=== PATIENT | male | born 1995 | race Caucasian/White ===

== ENCOUNTER 2016-09-15 12:58 | Emergency (ER) | payer OTHER ==
[2016-09-15 13:37] VITALS: BP 138/77
--- NOTE | 2016-09-15 16:25 | RAD ---
Indication: Left hand pain. 3 views of left hand demonstrates no fracture. No other bone or joint abnormality is identified. IMPRESSION: No fracture of left hand is noted.
--- NOTE | 2016-10-16 15:49 | ED ---
Upper Extremity Pain - HPI Summary HPI Summary: Pt here w Lt hand pain after blunt trauma yesterday. Was fishing and got his line stuck in a tree. He pulled on the line to recover lure, etc and the lure came back at a high speed and struck him in the left hand. He has bruising and swelling here as well as soreness. Has not tried ice, ibuprofen nor does he want any today - just here to get checked for fracture. Denies numbness, tingling, weakness - moving hand and fingers well but is painful to do so. No skin break down. No other injuries to report. - History of Current Complaint Chief Complaint: EDExtremityUpper Stated Complaint: LT HAND INJURY Time Seen by Provider: 09/15/16 15:44 Hx Obtained From: Patient PMH/Surg Hx/FS Hx/Imm Hx Previously Healthy: Yes Endocrine/Hematology History: Denies: Hx Anticoagulant Therapy, Hx Blood Disorders - Immunization History Date of Tetanus Vaccine: 2013 Date of Influenza Vaccine: unknown Infectious Disease History: No Infectious Disease History: Denies: Traveled Outside the [place] in Last 30 Days - Social History Occupation: Student Lives: With Family - roommates Alcohol Use: Weekly Hx Substance Use: No Substance Use Type: Reports: None Hx Tobacco Use: No Smoking Status (MU): Never Smoked Tobacco Review of Systems Musculoskeletal: Other - see HPI Skin: Other - see HPI Neurological: Negative Psychological: Normal All Other Systems Reviewed And Are Negative: Yes Physical Exam Triage Information Reviewed: Yes Vital Signs On Initial Exam: Initial Vitals Temp Pulse Resp BP Pulse Ox 97.6 F 52 17 138/77 100 09/15/16 13:33 09/15/16 13:33 09/15/16 13:33 09/15/16 13:33 09/15/16 13:33 Vital Signs Reviewed: Yes Appearance: Positive: Well-Appearing, No Pain Distress, Well-Nourished Skin: Positive: Warm, Dry - mild echymosis w/ edema about Lt hand; no skin breakdown Head/Face: Positive: Normal Head/Face Inspection Eyes: Positive: EOMI ENT: Positive: Hearing grossly normal Respiratory/Lung Sounds: Positive: Breath Sounds Present Cardiovascular: Positive: Pulses are Symmetrical in both Upper and Lower Extremities Musculoskeletal: Positive: Strength/ROM Intact, Pain @ - affectd area on Lt hand w/ TTP and sore to make a fist - otherwise, moving well, no deformity Neurological: Positive: Normal, Sensory/Motor Intact, Alert, Oriented to Person Place, Time, CN Intact II-III Psychiatric: Positive: Normal Diagnostics - Vital Signs Vital Signs Temp Pulse Resp BP Pulse Ox 09/15/16 15:27 98.6 F 52 16 138/77 100 09/15/16 13:33 97.6 F 52 17 138/77 100 - Laboratory Lab Statement: Any lab studies that have been ordered have been reviewed, and results considered in the medical decision making process. Course/Dx - Diagnoses Provider Diagnoses: Contusion of left hand Discharge - Discharge Plan Condition: Stable Disposition: HOME Patient Education Materials: Contusion in Adults (ED) Referrals: Count Includes [facility] [Primary Care Provider] - Additional Instructions: Rest, ice, elevate You may take ibuprofen with food for pain and swelling Follow-up with [facility] if symptoms persist or worsen as you may benefit from referral to hand specialist.
== END 2016-09-15 16:37 | disposition home or self-care (01) ==
LOC: ED 12:58
DX: S60.222A Contusion of left hand, initial encounter (principal); W22.8XXA Striking against or struck by other objects, initial encounter; Y93.89 Activity, other specified; Y92.89 Other specified places as the place of occurrence of the external cause
CPT/HCPCS: 99281

== ENCOUNTER 2016-10-23 12:43 | Emergency (ER) | payer OTHER ==
[2016-10-23] MEDS ORDERED: Rabies Immune Globulin 10 ML* 150 UNIT/ML VIAL IM ONE (14:36)
[2016-10-23] MEDS ORDERED: Rabies VIRUS VACCINE, HDCV* 2.5 UNIT/ML 1 ML IM ONE (14:36)
[2016-10-23] MEDS ORDERED: Rabies Immune Globulin 2 ML* 150 UNITS/ML VIAL ONE (15:47)
[2016-10-23 16:36] VITALS: BP 133/87
--- NOTE | 2016-10-23 18:46 | ED ---
Dru Rojas Angela, scribed for Urban Heaton MD on 10/23/16 at 1433 . Bite Injury/Animal - HPI Summary HPI Summary: Pt is a 21 y/o male presenting to [facility] c/o a bat bite on his left hand last night. Pt reports he was trying to save it and it bit him. He let the bat free and can't be monitored. Pt denies any fever, chills, pain, SOB or other complaints from bite. He denies any PMHx. - History of Current Complaint Chief Complaint: EDAnimalBite Stated Complaint: BAT BITE Time Seen by Provider: 10/23/16 14:25 Hx Obtained From: Patient Onset of Injury: Happened days ago - yesterday Type of Bite: Animal - bat Pain Intensity: 0 Pain Scale Used: 0-10 Numeric Animal Available for Observation: No - Allergies/Home Medications Allergies/Adverse Reactions: Allergies Allergy/AdvReac Type Severity Reaction Status Date / Time No Known Allergies Allergy Verified 10/23/16 13:00 PMH/Surg Hx/FS Hx/Imm Hx Endocrine/Hematology History: Denies: Hx Anticoagulant Therapy, Hx Blood Disorders, Hx Diabetes Cardiovascular History: Denies: Hx Hypertension - Immunization History Date of Tetanus Vaccine: 2013 Date of Influenza Vaccine: unknown Infectious Disease History: Denies: Traveled Outside the [place] in Last 30 Days - Social History Alcohol Use: Weekly Hx Substance Use: No Substance Use Type: Reports: None Hx Tobacco Use: No Smoking Status (MU): Never Smoked Tobacco Review of Systems Negative: Fever, Chills Negative: Shortness Of Breath Negative: Vomiting, Nausea Positive: Other - Bat bite on his left hand All Other Systems Reviewed And Are Negative: Yes Physical Exam - Summary Physical Exam Summary: VITAL SIGNS: Reviewed. GENERAL: ~Patient is a well-developed and nourished male. Patient is not in any acute respiratory distress. HEAD AND FACE: No signs of trauma. No ecchymosis, hematomas or skull depressions. No sinus tenderness. EYES: PERRLA, EOMI x 2, No injected conjunctiva, no nystagmus. EARS: Hearing grossly intact. MOUTH: Oropharynx within normal limits. NECK: Supple, neck with full ROM. CHEST: Symmetric, no tenderness at palpation LUNGS: Clear to auscultation bilaterally. No wheezing or crackles. CVS: Regular rate and rhythm, S1 and S2 present, no murmurs or gallops appreciated. EXTREMITIES: FROM in all major joints, no edema, no cyanosis or clubbing. There is a wound that is consistent with a bite on his left hand. NEURO: Alert and oriented x 3. No acute neurological deficits. Speech is normal and follows commands. SKIN: Dry and warm Triage Information Reviewed: Yes Vital Signs On Initial Exam: Initial Vitals Temp Pulse Resp BP Pulse Ox 98.3 F 86 16 149/66 99 10/23/16 13:00 10/23/16 13:00 10/23/16 13:00 10/23/16 13:00 10/23/16 13:00 Vital Signs Reviewed: Yes Diagnostics - Vital Signs Vital Signs Temp Pulse Resp BP Pulse Ox 10/23/16 13:00 98.3 F 86 16 149/66 99 - Laboratory Lab Statement: Any lab studies that have been ordered have been reviewed, and results considered in the medical decision making process. Bite Injury Course/Dx - Course Course Of Treatment: Pt is a 21 y/o male presenting to [facility] c/o a bat bite on his left hand last night. Pt reports he was trying to save it and it bit him. He let the bat free and can't be monitored. Pt denies any fever, chills, pain, SOB or other complaints from bite. He denies any PMHx. The pt presents with a bat bite on his left hand. Pt was given rabies immune globulin as well as the vaccine. The pt will follow up with [facility]. The pt understands and agrees with this plan. He is hemodynamically stable, and alert and oriented x3. - Diagnoses Provider Diagnosis: Rabies exposure, Animal bite Discharge - Discharge Plan Condition: Stable Disposition: HOME Patient Education Materials: Rabies (ED), Animal Bite (ED) Referrals: [facility] [Primary Care Provider] - Additional Instructions: Your blood pressure was elevated during today's visit. Please follow up with your primary care provider for a blood pressure reading. Also, please follow up with the Health Department regarding your rabies exposure as directed. The documentation as recorded by the Dru whitmore Angela accurately reflects the service I personally performed and the decisions made by , Urban Heaton MD.
== END 2016-10-23 16:37 | disposition home or self-care (01) ==
LOC: ED 12:43
DX: Z20.3 Contact with and (suspected) exposure to rabies (principal); S61.452A Open bite of left hand, initial encounter; W64.XXXA Exposure to other animate mechanical forces, initial encounter; Y93.89 Activity, other specified; Y92.89 Other specified places as the place of occurrence of the external cause
CPT/HCPCS: 90375; 99282

== ENCOUNTER 2016-10-26 21:22 | Emergency (ER) | payer OTHER ==
[2016-10-26] MEDS ORDERED: Rabies VIRUS VACCINE, HDCV* 2.5 UNIT/ML 1 ML IM ONE (21:55)
--- NOTE | 2016-10-26 22:00 | ED ---
Bite Injury/Animal - HPI Summary HPI Summary: 21M presents for rabies vaccine. vaccine was given in same arm as immunoglobulin so makes vaccine ineffective so health department wants him to have it given. no reaction to previous vaccine. was bit by bat. - History of Current Complaint Chief Complaint: EDGeneral Stated Complaint: RABIES SHOT Time Seen by Provider: 10/26/16 21:47 Pain Intensity: 0 - Allergies/Home Medications Allergies/Adverse Reactions: Allergies Allergy/AdvReac Type Severity Reaction Status Date / Time No Known Allergies Allergy Verified 10/26/16 21:32 PMH/Surg Hx/FS Hx/Imm Hx Endocrine/Hematology History: Denies: Hx Anticoagulant Therapy, Hx Blood Disorders, Hx Diabetes Cardiovascular History: Denies: Hx Hypertension - Immunization History Date of Tetanus Vaccine: 2013 Date of Influenza Vaccine: unknown Infectious Disease History: No Infectious Disease History: Denies: Traveled Outside the [place] in Last 30 Days - Family History Known Family History: Negative: Cardiac Disease - Social History Alcohol Use: Weekly Hx Substance Use: No Substance Use Type: Reports: None Hx Tobacco Use: No Smoking Status (MU): Never Smoked Tobacco Review of Systems Negative: Fever Negative: Chest Pain Negative: Shortness Of Breath Positive: Other - need rabies vaccine All Other Systems Reviewed And Are Negative: Yes Physical Exam Triage Information Reviewed: Yes Vital Signs On Initial Exam: Initial Vitals Temp Pulse Resp BP Pulse Ox 98 F 61 16 171/76 100 10/26/16 21:33 10/26/16 21:33 10/26/16 21:33 10/26/16 21:33 10/26/16 21:33 Vital Signs Reviewed: Yes Appearance: Positive: Well-Appearing Skin: Positive: Warm, Dry Head/Face: Positive: Normal Head/Face Inspection Eyes: Positive: Normal, Conjunctiva Clear Respiratory/Lung Sounds: Positive: Clear to Auscultation, Breath Sounds Present Cardiovascular: Positive: Normal, RRR Diagnostics - Vital Signs Vital Signs Temp Pulse Resp BP Pulse Ox 10/26/16 21:33 98 F 61 16 171/76 100 - Laboratory Lab Statement: Any lab studies that have been ordered have been reviewed, and results considered in the medical decision making process. Bite Injury Course/Dx - Course Course Of Treatment: 21M presents for rabies vaccine. vaccine was given in same arm as immunoglobulin so makes vaccine ineffective so health department wants him to have it given. no reaction to previous vaccine. rabies vaccine given. patient understands and agrees with plan. - Diagnoses Differential Diagnosis/HQI/PQRI: Positive: Rabies Exposure Provider Diagnosis: Need for rabies vaccination Discharge - Discharge Plan Condition: Good Disposition: HOME Patient Education Materials: Rabies Vaccine (By injection) Referrals: [facility] [Primary Care Provider] - Additional Instructions: Return to ED if develop any new or worsening symptoms
[2016-10-26 22:47] VITALS: BP 125/76
== END 2016-10-26 22:45 | disposition home or self-care (01) ==
LOC: ED 21:22
DX: Z20.3 Contact with and (suspected) exposure to rabies (principal)
CPT/HCPCS: 96372; 99281

== ENCOUNTER 2017-03-27 13:44 | Emergency (ER) | payer OTHER ==
[2017-03-27] MEDS ORDERED: Morphine INJ* 4 MG/ML 1 ML CARPUJECT IV ONE (14:21)
[2017-03-27] MEDS ORDERED: Ondansetron INJ* 2 MG/ML VIAL IV ONE (14:21)
--- NOTE | 2017-03-27 14:55 | RAD ---
HISTORY: Left shoulder pain and swelling COMPARISONS: None VIEWS: 6, Frontal internal rotation, external rotation, outlet, and axillary views of the left shoulder with frontal and frontal oblique views of the left clavicle FINDINGS: BONE DENSITY: Normal. BONES: There is no displaced fracture. JOINTS: There is no arthropathy. There is widening of the acromioclavicular and coracoclavicular intervals which measure 1.6 and 2.5 cm respectively. There is superior displacement of the clavicle with respect to the acromion. ALIGNMENT: There is no dislocation. SOFT TISSUES: Unremarkable. OTHER FINDINGS: None. IMPRESSION: WIDENING OF THE ACROMIOCLAVICULAR AND CORACOCLAVICULAR INTERVALS CONSISTENT WITH LIGAMENTOUS INJURY. NO ACUTE OSSEOUS INJURY. IF SYMPTOMS PERSIST, RECOMMEND REPEAT IMAGING
--- NOTE | 2017-03-27 15:03 | RAD ---
HISTORY: Trauma, nausea, fatigue COMPARISONS: None TECHNIQUE: Multiple contiguous axial CT scans were obtained of the head without intravenous contrast. FINDINGS: HEMORRHAGE/INFARCT: There is no hemorrhage or acute infarct. MASSES/SHIFT: There is no mass or shift. EXTRA-AXIAL SPACES: There are no extra-axial fluid collections. SULCI AND VENTRICLES: The sulci and ventricles are normal in size and position for the patient's stated age. CEREBRUM: There are no focal parenchymal abnormalities. 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 CEREBELLUM: There are no focal parenchymal abnormalities. VESSELS: The vessels are grossly normal. PARANASAL SINUSES: The paranasal sinuses are clear. ORBITS: The orbits are unremarkable. BONES AND SOFT TISSUE: No bone or soft tissue abnormalities are noted. OTHER: None IMPRESSION: NO ACUTE INTRACRANIAL PATHOLOGY.
[2017-03-27 15:09] VITALS: BP 127/81
[2017-03-27] MEDS ORDERED: Ketorolac INJ* 30 MG/ML 1 ML VIAL IV PUSH ONE (15:16)
--- NOTE | 2017-03-27 15:21 | ED ---
Upper Extremity Pain - HPI Summary HPI Summary: Rt hand dominant pt here w/ Lt shoulder pain and deformity since getting tackled while playing football earlier today.This was recreational football - was not wearing a helmet. Friend who brought him reports he didn't look so hot after the hit and pt immediately requested to be brought here - states "I think I broke my clavicle". Denies numbness, tingling, weakness but can move fingers, wrist - pain in shoulder with moving elbow so refrains - no pain in elbow. Has not taken anything for pain prior to arrival however admits he had "a couple of beers" earlier today. Does not believe he hit his head but not sure about the details. Denies LOC, MORALES but reports he feels nauseous and fatigued - wants to go to sleep. No neck pain. - History of Current Complaint Chief Complaint: CABRERAhouorlandoerCArianna Stated Complaint: LEFT COLLAR BONE PAIN Time Seen by Provider: 03/27/17 14:12 Hx Obtained From: Patient, Family/Fire Control Technician - friend - Allergies/Home Medications Allergies/Adverse Reactions: Allergies Allergy/AdvReac Type Severity Reaction Status Date / Time No Known Allergies Allergy Verified 10/26/16 21:32 PMH/Surg Hx/FS Hx/Imm Hx Previously Healthy: Yes Endocrine/Hematology History: Denies: Hx Anticoagulant Therapy, Hx Blood Disorders, Hx Diabetes Cardiovascular History: Denies: Hx Hypertension - Immunization History Date of Tetanus Vaccine: 2013 Date of Influenza Vaccine: unknown Immunizations Up to Date: Yes Infectious Disease History: No Infectious Disease History: Denies: Traveled Outside the [place] in Last 30 Days - Family History Known Family History: Negative: Cardiac Disease - Social History Occupation: Student Lives: Dormitory/Roommates Alcohol Use: Weekly Alcohol Amount: last etoh today @ 1200-2 shots peach schnapps Hx Substance Use: No Substance Use Type: Reports: None Hx Tobacco Use: No Smoking Status (MU): Never Smoked Tobacco Review of Systems Positive: Fatigue Negative: Photophobia, Blurred Vision, Diplopia Negative: Epistaxis, Dental Pain Negative: Chest Pain - no pain w/ deep breath, no rib pain Negative: Shortness Of Breath, Cough Positive: Nausea. Negative: Abdominal Pain, Vomiting, Diarrhea Positive: no symptoms reported Positive: Arthralgia, Myalgia, Decreased ROM Skin: Negative Neurological: Negative Positive: Anxious - concerned but appears fatigued All Other Systems Reviewed And Are Negative: Yes Physical Exam Triage Information Reviewed: Yes Vital Signs On Initial Exam: Initial Vitals Temp Pulse Resp BP Pulse Ox 97.0 F 94 20 119/75 98 03/27/17 13:46 03/27/17 13:46 03/27/17 13:46 03/27/17 13:46 03/27/17 13:46 Vital Signs Reviewed: Yes Appearance: Positive: Well-Nourished, Ill-Appearing - generalized pallor, fatigued, Pain Distress - moerate to severe Skin: Positive: Warm - no erythema, no ecchymosis, no skin breakdown over affected area, Skin Color Reflects Adequate Perfusion, Dry Head/Face: Positive: Normal Head/Face Inspection - NTTP Eyes: Positive: Normal, EOMI, MARISOL, Conjunctiva Clear ENT: Positive: Normal ENT inspection, Hearing grossly normal, Pharynx normal, TMs normal - no hemotympanum however TM's are occluded by cerumen, Uvula midline. Negative: Nasal drainage Dental: Negative: Dental Fracture @ Neck: Positive: Supple, Nontender Respiratory/Lung Sounds: Positive: Clear to Auscultation, Breath Sounds Present , Fatigue, Other - ribs are NTTP. Negative: Decreased Breath Sounds, Subcutaneous Emphysema, Stridor, Tracheal Deviation, Wheezes, Unable to speak in full sentences Cardiovascular: Positive: Normal, RRR, Pulses are Symmetrical in both Upper and Lower Extremities Abdomen Description: Positive: Nontender, No Organomegaly, Soft Bowel Sounds: Positive: Present Musculoskeletal: Positive: Strength/ROM Intact - Lt phalanges are mobile however these and wrist trigger pain in Lt shoulder - does not attempt to move Lt elbow d/t fear of pain; cervical spine w/o pain, restriction and NTTP, Limited @ - Lt elbow, Lt shoulder, Pain @ - prominent acromion p on Lt w/ lack of contours anteriorly here (ie. clavicle) Neurological: Positive: Sensory/Motor Intact - sensory intact in LUE however motor limited d/t pain, Alert, Oriented to Person Place, Time, CN Intact II-III , Reflexes Intact Psychiatric: Positive: Anxious - Alaina Coma Scale Coma Scale Total: 15 Diagnostics - Vital Signs Vital Signs Temp Pulse Resp BP Pulse Ox 03/27/17 15:09 98.9 F 72 18 127/81 100 03/27/17 14:29 20 03/27/17 13:46 97.0 F 94 20 119/75 98 - Laboratory Diagnostic Studies Comment: XR image and report reveal space between AC joint and CC joint, suspicious for ligament injury. No fx, no humeral dislocation. Lab Statement: Any lab studies that have been ordered have been reviewed, and results considered in the medical decision making process. Re-Evaluation - Re-Evaluation First Eval Change: Improved - color, overall demeanor and pain improved s/p morphine however pt still has pain - will order toradol; also has improvement with sling - acromion p. less prominent once placed in sling and pt reports improved pain in this position Course/Dx - Course Course Of Treatment: Pt's injury and XR correlate w/ 2nd/3rd degree sprain of AC and CC joints. Immobilized as pt reports he's afraid he may try to move his arm without thinking and sling applied as ASHISH and provides most relief. Advised JOSH, meds and close f/u w/ ortho. He agrees w/ plan and will return to ED if danger s/sx present. Female friend accompanies pt and reports she will drive him home and aid in d/c plan. - Diagnoses Provider Diagnoses: Sprain of coracoclavicular ligament of left shoulder, Separation of left acromioclavicular joint Discharge - Discharge Plan Condition: Stable Disposition: HOME Prescriptions: HYDROcodone/ACETAMIN 5-325 MG* [[place] 5-325 TAB*] 1 tab PO Q6H PRN #20 tab MDD 4 PRN Reason: Pain Ibuprofen TAB* [Motrin TAB* 600 MG] 600 mg PO Q6H PRN #20 tab PRN Reason: Pain Patient Education Materials: Acromioclavicular Separation (ED) Forms: *School Release Referrals: Suzan Waller MD [Medical Doctor] - Additional Instructions: You appear to have injured the ligaments of both your acromioclavicular joint as well as your coracoclavicular joint. This may be treated today with ice, rest , immobilization and ibuprofen alternating with norco (a narcotic pain medication) for pain. It is important that you keep the immobilizer in place until seen by orthopedic shoe fitter - call Wednesday to schedule an appointment. *If in the meantime, you develop numbness, tingling, weakness, intolerable pain despite recommendations, return to ED
== END 2017-03-27 16:37 | disposition home or self-care (01) ==
LOC: ED 13:44
DX: S43.52XA Sprain of left acromioclavicular joint, initial encounter (principal); S43.82XA Sprain of other specified parts of left shoulder girdle, initial encounter; Y93.61 Activity, american tackle football; Y92.9 Unspecified place or not applicable
CPT/HCPCS: 70450; 96374; 96375; 99282; J1885; J2270; J2405

== ENCOUNTER 2017-07-06 17:58 | Inpatient (IN) | payer OTHER ==
[2017-07-06 19:05] LABS: ABS Basophils 0.1 10^3/ul (0-0.2); ABS Eosinophils 0 10^3/ul (0-0.6); ABS Lymphocytes 1.3 10^3/ul (1.0-4.8); ABS Monocytes 1.1 10^3/ul (0-0.8); ABS Neutrophils 10.2 10^3/ul (1.5-7.7); ABS Nucleated RBC 0 10^3/ul; Eosinophil % 0.3 % (0-6); Hematocrit 45 % (42-52); Hemoglobin 15.9 g/dl (14.0-18.0); Lymphocyte % 10.3 % (25-47); Mean Corpuscular HGB Conc 35 g/dl (31-36); Mean Corpuscular Hemoglobin 29 pg (27-31); Mean Corpuscular Volume 83 fL (80-94); Mean Platelet Volume 8.4 um3 (7.4-10.4); Nucleated Red Blood Cells % 0; Platelet Count 275 10^3/ul (150-450); Red Blood Count 5.44 10^6/ul (4.0-5.4); Red Cell Distribution Width 13 % (10.5-15); White Blood Count 12.8 10^3/ul (3.5-10.8)
[2017-07-06 19:28] LABS: EGFR Non-African American 80.3 (>60)
[2017-07-06 21:36] LABS: Urine Appearance Clear; Urine Blood 1+ (Negative); Urine Color Yellow; Urine Ketones 1+ (Negative); Urine Protein Negative (Negative); Urine Specific Gravity 1.011 (1.010-1.030); Urine Urobilinogen Negative (Negative)
[2017-07-07] MEDS ORDERED: Al Hydrox/Mg Hydrox/Simet LIQ* 30 ML UDC PO PRN (02:30)
[2017-07-07] MEDS ORDERED: Acetaminophen TAB* 325 MG PO PRN (02:30)
[2017-07-07] MEDS: Vitamin THERAPEUTIC TAB PO SCH (10:10)
[2017-07-07] MEDS ORDERED: Temazepam CAP* 15 MG PO PRN (15:14)
--- NOTE | 2017-07-07 15:43 | HP ---
H&P (Free Text) History and Physical: Psychiatric Attending History and Physical NAME: Jayme Griffith : 1995 AGE: 21 PROVIDER: Phillip House D.O DATE OF ADMISSION: 07/07/2017 JUSTIFICATION FOR ADMISSION: Patient is in need of 24 hour supervision on locked in patient psychiatric due to active suicidal ideation with plan to jump of [place] on [facility] CHIEF COMPLAINT: "I have been very depressed for past few months and when I learned that I had to give a lecture instead of going to campus fun event, I figured this was good time put an end to everything..." HISTORY OF THE PRESENT ILLNESS: patient is a 21 year old 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 He is 2 weeks shy of completing his 4th year with one more semester to graduate. Patient has history of undiagnosed untreated depression/anxiety since [employer]urence year of high school. describes major depressive episode with SI and overdose with pills which lasted about 6 months and then resolved by early senior year. reports depression, low self worth, feelings of hopelessness, sleep difficulties throughout the last 4 years with occasional SI but mostly suicide ideation free. Past three months he describes daily depression, amotivation, tendency to isolate more, loss of interest, diminished concentration, increased difficulty completing his academic work ie. taking him longer as he is distracted, increased amount of worrying especially about his future, increased feelings of worthlessness, hopelessness daily, difficulty falling asleep and at times sleeping too much during the day, thoughts of ending his life by taking pills several times a week and recently more often than that. reports that this would "make all the stress and worry go away". He reports doing well in school for past 4 years. he identifies major stressors as tremendous work load required of him which includes taking 18 credits per semester due to accelerated nature of his program., currently having trust issues in relationships with girlfriends past and present, history of tendency to be perfectionistic, always feeling like he is falling short of his self expectations, lack of emotional intimacy with parents most of his life whom he reports he did not confide in, longstanding fear of disclosing his mood and anxiety symptoms for fear they would burden his friends or family and would result in being rejected by his friends, awareness of his own father's struggle with depression and use of alcohol to self medicate and feeling helpless to make it better, fear of abandonment especially in relationships, tendency to become intensely angry when things don't go his way and feeling unable to manage his anger, difficulty communicating frustration and needs with friends and family. other stressors include financial stress of paying for college. on day of admission, Jayme was looking forward to an event at [employer] called "slide day but found out that he had to give a lecture on that day. He became intensely disappointed and angry , and quite impulsively began thinking this would be the day that he would end his life. He called his girlfriend whom he describes as "my lifeline" and told her that he was on his way to the [email or web address] to jump and then hung up on girlfriend. He subsequently, [place] and then called his girlfriend back stating that he had arrived at a specific water[place] which everyone knows on campus. Girlfriend called friends of patient who met him there and brought him to the hospital. He subsequently told staff in the ER that he has talked with girlfriend about suicide in the past which was interpreted as by staff as meaning that he and girlfriend had a suicide pact. no history of self injury. says he took two shots of alcohol on day of admission to ED PAST PSYCHIATRIC HISTORY: as described above. no past mental health treatment including therapy, medication treatment or substance abuse treatment SUBSTANCE ABUSE HISTORY: marijuana "in the past" drinks weekly on weekends. PAST MEDICAL HISTORY: History of "viral" meningitis laurence year of high school. nursing note denotes that it was "fungal" He was very ill and states he was put in "medically induced coma". hospitalized for one week. states that he was subsequently diagnosed the same year with Bryanna's thyroiditis. He was treated with synthroid which he took through senior year of high school. He follows with PCP regularly in [facility] and medication was stopped at the end of high school by his doctor. CURRENT MEDICATIONS: none ALLERGIES: NKDA FAMILY PSYCHIATRIC HISTORY: Paternal family: multiple family members with depression, father has had untreated depression for many years. father called the emergency room and told nurse to communicate to Jayme that he has suffered with depression and wishes to talk with Jayme about it. father also has history of alcohol use disorder. no history of suicidal behavior in family. brother being treated for depression. FAMILY/PSYCHOSOCIAL HISTORY: Raised in [facility] which is outside of [place]. Parents when he was 7. Lived with mother but had equal visitation with mother. Father is a western philosophy professor at a [employer]. Mother is a psychologist who works for [employer]. one older brother who is in Physical therapy masters program. denies legal problems past or present. denies history of childhood trauma. 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 no evidence of oral lesions Respiratory: CTA bilaterally without expiratory wheezing, no rhonchi, no retractions visible Cardiovascular: RRR normal s1 and s2. radial, brachoradialis, dorsalis pedis pulses symmetic 5+/5 bilaterally Abdomen: soft non tender, normoactive bowel sound present in all quadrants, no HSM, no palpable masses Musculoskeletal: full range of motions in all extremities, no evidence of spinal curvature Lymph: no axillary lypmphadenopathy Neuro: CN 2 to 12 intact, no sensory deficits, motor 5+/5 in upper and lower extremites, bilaterally symmetric no cerebellar signs, normal gait, no tremor MENTAL STATUS EXAMINATION: Patient is a well developed and nourished 21 year old.. He is dressed casually , has a neat appearance, and has good hygiene. He is well related with good eye contact. psychomotor activity normal. specch: normal rate and volume, non pressured, normal spontaneity and fluency. Mood: self described as dysphoric affect anxious and downcast. , normal amplitude Thought process is logical, goal directed and coherent. Thought content: patient endorses the following depressive symptoms: decreased concentration, dysphoric mood, amotivation, anergy, feeling hopeless, having intermittent suicidal ideation for past 3 months. He describes also fantasizing about how he would do it ie. plan to jump or to take pills but has never had intention to carry it out. He reports that calling his girlfriend was his way of asking for help and was a "safety valve". He denies feeling suicidal currently. He acknowledged that keeping his depression secret for so long has not been helpful. He does not know why he never shared what was happening to him. He fears being rejected for having mental illness. He fears ending up like his father. He also reports that he is not close with his brother. reports both difficulty falling asleep but also increased amount of sleep past few months especially during the day and tendency to isolate. denies auditory, visual hallucinations, Paranoia, delusions, obsessions or compulsions. denies homicidal thoughts. Cognitive: alert and fully oriented in all spheres. insight partial judgment currently intact but clearly prone to poor exercise poor judgment secondary to character flows including poor impulse control, low frustration tolerance, difficulty with self regulation, narcissistic defenses. . LABORATORY DATA: Laboratory Results - last 24 hr 07/06/17 07/06/17 19:00 19:00 WBC 12.8 H RBC 5.44 H Hgb 15.9 Hct 45 MCV 83 MCH 29 MCHC 35 RDW 13 Plt Count 275 MPV 8.4 Neut % (Auto) 80.1 Lymph % (Auto) 10.3 L [place] % (Auto) 8.8 H Eos % (Auto) 0.3 Baso % (Auto) 0.5 Absolute Neuts (auto) 10.2 H Absolute Lymphs (auto) 1.3 Absolute Monos (auto) 1.1 H Absolute Eos (auto) 0 Absolute Basos (auto) 0.1 Absolute Nucleated RBC 0 Nucleated RBC % 0 ESR 8 Sodium 140 Potassium 3.5 Chloride 101 Carbon Dioxide 24 Anion Gap 15 H BUN 13 Creatinine 1.15 Est GFR ( Amer) 103.2 Est GFR (Non-Af Amer) 80.3 BUN/Creatinine Ratio 11.3 Glucose 88 Calcium 9.8 Total Bilirubin 1.20 H AST 15 ALT 14 Alkaline Phosphatase 67 Total Protein 7.8 Albumin 4.8 Globulin 3.0 Albumin/Globulin Ratio 1.6 Vitamin B12 335 Folate 9.64 TSH 7.07 H Free T4 0.90 Thyroxine (T4) 6.01 L Total T3 1.01 Salicylates < 2.50 Acetaminophen < 15 Serum Alcohol < 10 Thyroid Peroxidase Ab 327.52 H Laboratory Last Values WBC 12.8 10^3/ul (3.5-10.8) H 07/06/17 19:00 RBC 5.44 10^6/ul (4.0-5.4) H 07/06/17 19:00 Hgb 15.9 g/dl (14.0-18.0) 07/06/17 19:00 Hct 45 % (42-52) 07/06/17 19:00 MCV 83 fL (80-94) 07/06/17 19:00 MCH 29 pg (27-31) 07/06/17 19:00 MCHC 35 g/dl (31-36) 07/06/17 19:00 RDW 13 % (10.5-15) 07/06/17 19:00 Plt Count 275 10^3/ul (150-450) 07/06/17 19:00 MPV 8.4 um3 (7.4-10.4) 07/06/17 19:00 Neut % (Auto) 80.1 % (38-83) 07/06/17 19:00 Lymph % (Auto) 10.3 % (25-47) L 07/06/17 19:00 Des[place] % (Auto) 8.8 % (0-7) H 07/06/17 19:00 Eos % (Auto) 0.3 % (0-6) 07/06/17 19:00 Baso % (Auto) 0.5 % (0-2) 07/06/17 19:00 Absolute Neuts (auto) 10.2 10^3/ul (1.5-7.7) H 07/06/17 19:00 Absolute Lymphs (auto) 1.3 10^3/ul (1.0-4.8) 07/06/17 19:00 Absolute Monos (auto) 1.1 10^3/ul (0-0.8) H 07/06/17 19:00 Absolute Eos (auto) 0 10^3/ul (0-0.6) 07/06/17 19:00 Absolute Basos (auto) 0.1 10^3/ul (0-0.2) 07/06/17 19:00 Absolute Nucleated RBC 0 10^3/ul 07/06/17 19:00 Nucleated RBC % 0 07/06/17 19:00 ESR 8 mm/Hr (0-14) 07/06/17 19:00 Sodium 140 mmol/L (139-145) 07/06/17 19:00 Potassium 3.5 mmol/L (3.5-5.0) 07/06/17 19:00 Chloride 101 mmol/L (101-111) 07/06/17 19:00 Carbon Dioxide 24 mmol/L (22-32) 07/06/17 19:00 Anion Gap 15 mmol/L (2-11) H 07/06/17 19:00 BUN 13 mg/dL (6-24) 07/06/17 19:00 Creatinine 1.15 mg/dL (0.67-1.17) 07/06/17 19:00 Est GFR ( Amer) 103.2 (>60) 07/06/17 19:00 Est GFR (Non-Af Amer) 80.3 (>60) 07/06/17 19:00 BUN/Creatinine Ratio 11.3 (8-20) 07/06/17 19:00 Glucose 88 mg/dL (70-100) 07/06/17 19:00 Calcium 9.8 mg/dL (8.6-10.3) 07/06/17 19:00 Total Bilirubin 1.20 mg/dL (0.2-1.0) H 07/06/17 19:00 AST 15 U/L (13-39) 07/06/17 19:00 ALT 14 U/L (7-52) 07/06/17 19:00 Alkaline Phosphatase 67 U/L (34-104) 07/06/17 19:00 Total Protein 7.8 g/dL (6.4-8.9) 07/06/17 19:00 Albumin 4.8 g/dL (3.2-5.2) 07/06/17 19:00 Globulin 3.0 g/dL (2-4) 07/06/17 19:00 Albumin/Globulin Ratio 1.6 (1-3) 07/06/17 19:00 Vitamin B12 335 pg/mL (180-914) 07/06/17 19:00 Folate 9.64 ng/mL (>3.99) 07/06/17 19:00 TSH 7.07 mcIU/mL (0.34-5.60) H 07/06/17 19:00 Free T4 0.90 ng/dL (0.61-1.12) 07/06/17 19:00 Thyroxine (T4) 6.01 mcg/mL (6.09-12.23) L 07/06/17 19:00 Total T3 1.01 ng/mL (0.87-1.78) 07/06/17 19:00 Urine Color Yellow 07/06/17 21:05 Urine Appearance Clear 07/06/17 21:05 Urine pH 7.0 (5-9) 07/06/17 21:05 Ur Specific [place] 1.011 (1.010-1.030) 07/06/17 21:05 Urine Protein Negative (Negative) 07/06/17 21:05 Urine Ketones 1+ (Negative) A 07/06/17 21:05 Urine Blood 1+ (Negative) A 07/06/17 21:05 Urine Nitrate Negative (Negative) 07/06/17 21:05 Urine Bilirubin Negative (Negative) 07/06/17 21:05 Urine Urobilinogen Negative (Negative) 07/06/17 21:05 Ur Leukocyte Esterase Negative (Negative) 07/06/17 21:05 Urine WBC (Auto) Absent (Absent) 07/06/17 21:05 Urine RBC (Auto) 1+(3-5/hpf) (Absent) A 07/06/17 21:05 Urine Bacteria Absent (Absent) 07/06/17 21:05 Urine Glucose Negative (Negative) 07/06/17 21:05 Salicylates < 2.50 mg/dL (<30) 07/06/17 19:00 Urine Opiates Screen None detected (None Detect) 07/06/17 21:05 Acetaminophen < 15 mcg/mL 07/06/17 19:00 Ur Barbiturates Screen None detected (None Detect) 07/06/17 21:05 Ur Phencyclidine Scrn None detected (None Detect) 07/06/17 21:05 Ur Amphetamines Screen None detected (None Detect) 07/06/17 21:05 U Benzodiazepines Scrn None detected (None Detect) 07/06/17 21:05 Urine Cocaine Screen None detected (None Detect) 07/06/17 21:05 U Cannabinoids Screen None detected (None Detect) 07/06/17 21:05 Serum Alcohol < 10 mg/dL (<10) 07/06/17 19:00 Thyroid Peroxidase Ab 327.52 IU/mL (<9) H 07/06/17 19:00 IMPRESSION: 21 yo Senior [employer] student with history of persistent and episodic depression and anxiety since laurence year in high school. Patient presents with recurrent major depressive episode which has unfolded over past few months in the context of multiple stressors both acute and chronic. patient's mood symtpoms likely have multiple determinants including genetic predisposition, hypothyroidism, and characterological flaws (borderline , narcissistic) which all have affective dysregulation as a common denominator. Finally, I suspect that Jayme called his girlfriend because he knew he would be brought to hospital and wanted to finally get help for how he was feeling. 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 he will be observed for minimum of 48 hours on our locked inpatient unit in order to provide 24 hour supervision. He will be observed and interviewed by myself, aids social worker, psychologist, and nursing staff in order to assess his level of safety and to determine when he is no longer at risk. I understand tat his mother and step father are here and I will arrange family meeting. I will start him on synthroid 37.5 micrograms daily. he has given informed consent to start Trintellix and trazodone for depression, anxiety and insomnia. psychological consult with Dr. Pizano will be requested to delineate presence of character pathology which will inform the need for treatment. SW evaluation for discharge planning and therapeutic services while in house. I will contact his PCP in [place] in order to get history of his thyroid disease. I would also like to question parents about meningitis history and if there were any neuropsychiatric sequelae which have persisted. finally we will have crisis counselor from [employer] meet with Jayme so that educational modifications can be made so that he can defer completion of his finals in order to give him time to recover from this current episode of illness.
[2017-07-07] MEDS ORDERED: traZODone TAB* 50 MG TAB PO PRN (15:45)
[2017-07-07] MEDS ORDERED: hydrOXYzine HCL TAB* 50 MG PO PRN (15:47)
[2017-07-07] MEDS ORDERED: VORTIOXETINE 10 MG PO ONE (16:00)
[2017-07-07] MEDS ORDERED: Temazepam CAP* 15 MG PO SCH (21:00)
[2017-07-08] MEDS ORDERED: Levothyroxine TAB* 25 MCG TAB PO SCH ×2 (06:00)
[2017-07-08 08:07] VITALS: BP 143/67
[2017-07-08] MEDS ORDERED: VORTIOXETINE 10 MG PO SCH (09:00)
[2017-07-08] MEDS: Vitamin THERAPEUTIC TAB PO SCH (09:25)
--- NOTE | 2017-07-08 11:01 | DS ---
Discharge Planning - Discharge Planning Medications: Current Medications Acetaminophen (Tylenol Tab*) 650 mg PO Q4H PRN PRN Reason: PAIN or TEMP > 101 F Last Admin: 07/07/17 10:10 Dose: 650 mg Al Hydrox/Mg Hydrox/Simethicone (Maalox Plus*) 30 ml PO Q4H PRN PRN Reason: INDIGESTION Hydroxyzine HCl (Atarax Tab*) 50 mg PO Q4H PRN PRN Reason: agitation/anxiety Levothyroxine Sodium (Synthroid Tab*) 37.5 mcg PO DAILY@0600 [facility] Last Admin: 07/08/17 06:00 Dose: 37.5 mcg Multivitamins (Theragran Tab*) 1 tab PO DAILY [facility] Last Admin: 07/08/17 09:25 Dose: 1 tab Trazodone HCl (Desyrel Tab*) 50 mg PO BEDTIME PRN PRN Reason: INSOMNIA Vortioxetine (Trintellix (Nf)) 10 mg PO DAILY [facility] Last Admin: 07/08/17 09:26 Dose: 10 mg Discharge Planning: Prescriptions provided for discharge [] Yes [] No Follow up care details as per social work arrangements. Patient response to discharge plan: [] eager for discharge [] agreeable with discharge plan [] ambivalent about discharge [] disagrees with discharge today
--- NOTE | 2017-07-08 18:20 | CONS ---
CONSULTATION REPORT: DATE OF CONSULTATION: 07/08/17 REASON FOR REFERRAL: Jayme was referred for personality testing secondary to concerns regarding depression and possible lethality as well as vulnerability to characterological traits including borderline narcissistic proclivities. TEST ADMINISTERED: Jayme completed the [place] Multiphasic Personality Inventory - 2 (MMPI-2). He was seen in the context of cognitive behavioral group psychotherapy by this bond underwriter on 2 occasions. 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 Apparently, Jayme anticipates completion in 4-1/ 2 years often taking 18 credits a semester. Historically, he has done well academically and is looking forward to appointment at [facility] in [place]. 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 Jayme was hospitalized secondary to suicidal rumination where he expressed suicidal thoughts and intent to his girlfriend who then summoned some friends of his to intervene while he was either at a falls on [facility]. Apparently, he had essentially lost his temper after he was made to give some sort of presentation during [place] . This appears to be the start-up of the back of sorts in that he described is the only nonacademic day of the year for him. Jayme appears to have had recurrent difficulties with depression in his entire school years and certainly impresses as having ongoing problems in this regard. BEHAVIORAL OBSERVATION: Jayme has been in good behavioral control on the unit and has attended and participated in programming. Staff of various discipline have described him as dismissive and somewhat condescending to both peers and staff, expressing how "this place makes me worse..... and I don't belong here." He is well related in conversation, making good eye contact and is spontaneous in speech. He presents with flat and unvariable affect in a group context. He is responsive to direct prompts to engage in discussion, especially in the context of academic and career interests. Currently he impresses as being future oriented and interested and excited about his work interest. TEST RESULTS: Jayme provides a valid protocol on this administration of the MMPI -2. His clinical index is remarkable for an elevation on the depression scale (T =80) with a concomitant very low score occurring on the hypomania scale (T=43). Scoring in these ranges on these 2 scales is usually indicative of a major depressive episode characterized by feeling low energy and listlessness. Concerns regarding borderline or narcissistic proclivities were not evidenced in the testing context. IMPRESSION AND RECOMMENDATIONS: Jayme impresses as having regained his sense of perspective in regards to his recent suicidal rumination. He did self-preserve in the context of this apparent attempt having made a call to his girlfriend and then complying with interventions resulting in his hospitalization. Once here, he quickly seemed to regain a sense of forward momentum again, expressing his interest and desire to be discharged in order to take care of his academic requirements and eventually move on to employment through [employer] in the coming months. His behavior supports concerns regarding narcissistic proclivities, which is apparent in conversation as well as his rather dismissive behaviors in group psychotherapies. Also other staff notes include difficulties in maintaining emotional intimacy with either partners or friends and being rather dismissive of social interaction as "fake." ONGOING TREATMENT: Should make attempts to initially establish rapport with Jayme and help him understand utility and meaning of engaging in verbal therapies as well as compliance with recommended medications. DIAGNOSTIC IMPRESSION: Also supports major depressive disorder, recurrent, moderate without psychosis. [id number]/[facility] #: [id number] MARLINE
--- NOTE | 2017-07-13 08:48 | ED ---
Veto Rojas Jennifer scribed for Jose Sanon MD on 07/06/17 at 1909 . Psychiatric Complaint - HPI Summary HPI Summary: The patient is a 21 year old male who was brought in by police for depression. The patient reports he has had depression for years and made comments about wanting to hurt himself. The patient denies having plan today. He reports he last attempted to hurt himself four years ago by taking pills. The patient denies mental health history. - History Of Current Complaint Chief Complaint: EDMentalHealth Time Seen by Provider: 07/06/17 18:25 Hx Obtained From: Patient Onset/Duration: Gradual Onset, Still Present, Other - Years Timing: Constant Severity Initially: Moderate Severity Currently: Moderate Character: Depressed Aggravating Factor(s): Nothing Alleviating Factor(s): Nothing Associated Signs And Symptoms: Positive: Negative Related History: Negative For: Prior Psychiatric Issues Has Suicidal: Reports: Thoughts, Has Prior Attempt(s). Denies: With A Plan, Demonstrates Gesture Has Homicidal: Denies: Thoughts, With A Plan - Allergies/Home Medications Allergies/Adverse Reactions: Allergies Allergy/AdvReac Type Severity Reaction Status Date / Time No Known Allergies Allergy Verified 07/06/17 18:12 Home Medications: Home Medications Ibuprofen TAB* [Advil TAB*] 200 mg PO Q6H PRN 07/06/17 [History Confirmed ] PMH/Surg Hx/FS Hx/Imm Hx Endocrine/Hematology History: Denies: Hx Anticoagulant Therapy, Hx Blood Disorders, Hx Diabetes Cardiovascular History: Denies: Hx Hypertension - Immunization History Date of Tetanus Vaccine: 2013 Date of Influenza Vaccine: unknown Infectious Disease History: No Infectious Disease History: Reports: Traveled Outside the [place] in Last 30 Days - [place] - Family History Known Family History: Negative: Cardiac Disease - Social History Alcohol Use: Weekly Alcohol Amount: last etoh today @ 1200-2 shots peach schnapps Hx Substance Use: No Substance Use Type: Reports: None Hx Tobacco Use: No Smoking Status (MU): Never Smoked Tobacco Review of Systems Negative: Fever, Chills Negative: Erythema Negative: Sore Throat Negative: Chest Pain Negative: Shortness Of Breath, Cough Negative: Abdominal Pain, Vomiting, Nausea Negative: dysuria, hematuria Negative: Myalgia, Edema Negative: Rash Neurological: Negative - Dizziness Positive: Depressed All Other Systems Reviewed And Are Negative: Yes Physical Exam - Summary Physical Exam Summary: Constitutional: Well-developed, Well-nourished, Alert. (-) Distressed Skin: Warm, Dry HENT: Normocephalic; Atraumatic Eyes: Conjunctiva normal Neck: Musculoskeletal ROM normal neck. (-) JVD, (-) Stridor, (-) Tracheal deviation Cardio: Rhythm regular, rate normal, Heart sounds normal; Intact distal pulses; The pedal pulses are 2+ and symmetric. Radial pulses are 2+ and symmetric. (-) Murmur Pulmonary/Chest wall: Effort normal. (-) Respiratory distress, (-) Wheezes, (-) Rales Abd: Soft, (-) Tenderness, (-) Distension, (-) Guarding, (-) Rebound Musculoskeletal: (-) Edema Lymph: (-) Cervical adenopathy Neuro: Alert, Oriented x3 Psych: Mood and affect Normal Triage Information Reviewed: Yes Vital Signs On Initial Exam: Initial Vitals Temp Pulse Resp BP Pulse Ox 100.7 F 85 14 143/87 100 07/06/17 18:12 07/06/17 18:12 07/06/17 18:12 07/06/17 18:12 07/06/17 18:12 Vital Signs Reviewed: Yes Diagnostics - Vital Signs Vital Signs Temp Pulse Resp BP Pulse Ox 07/06/17 18:12 100.7 F 85 14 143/87 100 - Laboratory Result Diagrams: 07/06/17 19:00 07/06/17 19:00 Lab Statement: Any lab studies that have been ordered have been reviewed, and results considered in the medical decision making process. Course/Dx - Course Course Of Treatment: The patient is a 21 year old male who was brought in by police for depression. The patient is diagnosed with suicidal ideation. He was admitted to Flex unit. - Differential Dx/Clinical Impression Provider Diagnosis: Suicidal ideation Discharge - Sign-Out/Discharge Documenting (check all that apply): Discharge/Admit/Transfer - Discharge Plan Condition: Good Disposition: [facility]ATRIC [facility]AC[facility] [place] Referrals: [facility] Yomi SIMPSON [Primary Care Provider] - Additional Instructions: Follow up with your primary care physician in three days. RETURN TO THE EMERGENCY DEPARTMENT FOR CHANGING OR WORSENING SYMPTOMS. The documentation as recorded by the Veto whitmore Jennifer accurately reflects the service I personally performed and the decisions made by me, Jose Sanon MD.
== END 2017-07-08 14:30 | disposition home or self-care (01) | DRG 751 ==
LOC: ED 17:58 → BSU 07-07 02:24
PROVIDERS: ADMIT Psychiatry & Neurology Psychiatry; ATTEND Psychiatry & Neurology Psychiatry
DX: F33.1 Major depressive disorder, recurrent, moderate (principal); R45.851 Suicidal ideations; F41.9 Anxiety disorder, unspecified; E03.9 Hypothyroidism, unspecified; F60.9 Personality disorder, unspecified; E06.3 Autoimmune thyroiditis; G47.00 Insomnia, unspecified; Z91.5 Personal history of self-harm; Z72.89 Other problems related to lifestyle; Z81.8 Family history of other mental and behavioral disorders; Z81.1 Family history of alcohol abuse and dependence; Z86.19 Personal history of other infectious and parasitic diseases
CPT/HCPCS: 36415; 80053; 80307; 80320; 80329; 81003; 81015; 82607; 82746; 84436; 84439; 84443; 84479; 85025; 85652; 86376; 96102; 99222; 99238; 99285; A9270-GY; G0480

== ENCOUNTER 2017-12-14 18:44 | Emergency (ER) | payer OTHER ==
--- NOTE | 2017-12-14 19:06 | UC ---
Lower Extremity/Ankle HPI - HPI Summary HPI Summary: 22 yo male presents with RIGHT ankle pain. He tells me that he was walking around a ditch and slipped and inverted his right ankle about 30min [facility]. He is able to bear weight, but has significant pain laterally. He has not taken anything OTC. Denies numbness or tingling. - History of Current Complaint Stated Complaint: ANKLE INJURY Time Seen by Provider: 12/14/17 19:06 Hx Obtained From: Patient Onset/Duration: Sudden Onset Severity Initially: Moderate Severity Currently: Mild Pain Intensity: 2 Pain Scale Used: 0-10 Numeric Aggravating Factor(s): Standing, Ambulation Alleviating Factor(s): Rest, Elevation Able to Bear Weight: Yes - Allergies/Home Medications Allergies/Adverse Reactions: Allergies Allergy/AdvReac Type Severity Reaction Status Date / Time No Known Allergies Allergy Verified 12/14/17 19:09 Home Medications: Home Medications NK [No Home Medications Reported] 12/14/17 [History Confirmed 12/14/17] PMH/Surg Hx/FS Hx/Imm Hx - Additional Past Medical History Additional PMH: None Other History Of: Negative For: Anticoagulant Therapy - Surgical History Surgical History: None - Family History Known Family History: Negative: Cardiac Disease - Social History Occupation: Student Lives: With Family Alcohol Use: Weekly Substance Use Type: None Smoking Status (MU): Never Smoked Tobacco - Immunization History Most Recent Influenza Vaccination: flu season 2015 Most Recent Pneumonia Vaccination: never Review of Systems Constitutional: Negative Skin: Negative Respiratory: Negative Cardiovascular: Negative Neurovascular: Negative Musculoskeletal: Other: - Right ankle pain Neurological: Negative Psychological: Negative All Other Systems Reviewed And Are Negative: Yes Physical Exam - Summary Physical Exam Summary: GENERAL: NAD. WDWN. No pain distress. SKIN: No rashes, sores, lesions, or open wounds. CHEST: No accessory muscle use. Breathing comfortably and in no distress. CV: Pulses intact PT and DP. Cap refill <2seconds MSK: RIGHT ANKLE: Moderate TTP lateral malleolus. Mild edema lateral malleolus. FROM, pain with inversion. Strength 5/5. Negative talar tilt. No increased laxity. NEURO: Alert. Sensations intact and symmetric B/L LEs PSYCH: Age appropriate behavior. Triage Information Reviewed: Yes Vital Signs: Vital Signs: Temp Pulse Resp BP Pulse Ox 98 F 66 16 132/85 100 12/14/17 19:06 12/14/17 19:06 12/14/17 19:06 12/14/17 19:06 12/14/17 19:06 Vital Signs Reviewed: Yes Lower Extremity Course/Dx - Course Course Of Treatment: XR: No radiologist read after 1800, therefore wet read by myself is negative for fracture. Pt placed in DAGMAR wrap, gel splint, and crutches provided. Advised to RICE, take ibuprofen, and f/u with Orthopedics if his symptoms persist. - Differential Dx/Diagnosis Provider Diagnoses: Right ankle sprain Discharge - Sign-Out/Discharge Documenting (check all that apply): Patient Departure All imaging exams completed and their final reports reviewed: No - Discharge Plan Condition: Stable Disposition: HOME Patient Education Materials: Ankle Sprain (ED) Referrals: No Primary Care Phys,NOPCP [Primary Care Provider] - Bao Lo MD [Medical Doctor] - If Needed Additional Instructions: If you develop a fever, shortness of breath, chest pain, new or worsening symptoms - please call your PCP or go to the ED. 1) Rest, Ice, and elevate your ankle as much as possible 2) Use the crutches and gel splint for added support and pain relief 3) If your symptoms do not improve in 5-7 days, please call Orthopedics at the number below to schedule a follow up appointment. - Billing Disposition and Condition Condition: STABLE Disposition: Home
[2017-12-14 19:09] VITALS: BP 132/85
--- NOTE | 2017-12-15 08:04 | RAD ---
Indication: Lateral RIGHT ankle pain following rolling injury Comparison: No relevant prior exams available on the [facility] for comparison. Technique: AP, mortise, and lateral views RIGHT ankle. Report: Normal articular alignment. Negative for fracture or suggestion of small talocrural joint effusion. Mild lateral soft tissue swelling. IMPRESSION: #. Small joint effusion and mild lateral soft tissue swelling without additional abnormality. Consider lateral supporting ligament injury. R0
--- NOTE | 2017-12-15 09:50 | UC ---
- Progress Note Progress Note: XR: IMPRESSION: #. Small joint effusion and mild lateral soft tissue swelling without additional abnormality. Consider lateral supporting ligament injury. No change in plan of care Discharge - Sign-Out/Discharge Documenting (check all that apply): Post-Discharge Follow Up All imaging exams completed and their final reports reviewed: Yes - Discharge Plan Condition: Stable Disposition: HOME Patient Education Materials: Ankle Sprain (ED) Referrals: Bao Lo MD [Medical Doctor] - If Needed No Primary Care Phys,NOPCP [Primary Care Provider] - Additional Instructions: If you develop a fever, shortness of breath, chest pain, new or worsening symptoms - please call your PCP or go to the ED. 1) Rest, Ice, and elevate your ankle as much as possible 2) Use the crutches and gel splint for added support and pain relief 3) If your symptoms do not improve in 5-7 days, please call Orthopedics at the number below to schedule a follow up appointment. - Billing Disposition and Condition Condition: STABLE Disposition: Home
== END 2017-12-14 19:40 | disposition home or self-care (01) ==
LOC: UCEAST 18:44
DX: S93.401A Sprain of unspecified ligament of right ankle, initial encounter (principal); X50.1XXA Overexertion from prolonged static or awkward postures, initial encounter; Y93.01 Activity, walking, marching and hiking; Y92.9 Unspecified place or not applicable
CPT/HCPCS: 99213; G0463